=== PATIENT | male | born 1935 | race Caucasian/White ===

== ENCOUNTER 2017-06-29 14:42 | Emergency (ER) | payer OTHER ==
[~2017-06-29] VITALS: Ht 162.6 cm; Wt 105.8 kg
[~2017-06-29 14:42] MED LIST: APRESOLINE25 MG PO; ATORVASTATIN CA40 MG PO; CLOBETASOL PROP50 ML TP; CLOTRIM ANTIFUN15 GM TP; FUROSEMIDE20 MG PO; JANUVIA25 M1 PO; LEVOTHYROXINE112 MCG PO; LOSARTAN POTASS25 MG PO; LOW DOSE ASPIRI81 M1 PO; LYRICA100 MG PO; LYRICA200 MG PO; METFORMIN HCL1000 MG PO; METFORMIN HCL500 MG PO
[2017-06-29] MEDS ORDERED: PERCOCET 5/31 TABLET PO (16:25)
[2017-06-29] MEDS ORDERED: VALIUM5 MG PO (16:25)
[2017-06-29] MEDS ORDERED: PREDNISONE10 MG PO (16:25)
[2017-06-29 16:37] VITALS: BP 112/66
== END 2017-06-29 16:51 | disposition home or self-care (01) ==
LOC: EME 14:42
DX: M54.32 Sciatica, left side (principal); E11.9 Type 2 diabetes mellitus without complications; Z79.84 Long term (current) use of oral hypoglycemic drugs; Z79.82 Long term (current) use of aspirin
CPT/HCPCS: 72100; 99281; 99284; J1100; J3010

== ENCOUNTER 2017-11-05 18:12 | Emergency (ER) | payer OTHER ==
[~2017-11-05] VITALS: Ht 165.1 cm; Wt 106.0 kg
[~2017-11-05 18:12] MED LIST changes: +PERCOCET 5/31 TABLET PO; +PREDNISONE10 MG PO; +VALIUM5 MG PO
[2017-11-05 18:36] VITALS: BP 177/68
== END 2017-11-05 19:45 | disposition home or self-care (01) ==
LOC: EME 18:12
DX: J02.9 Acute pharyngitis, unspecified (principal); R05 Cough; R09.82 Postnasal drip; I10 Essential (primary) hypertension; E11.9 Type 2 diabetes mellitus without complications; E78.00 Pure hypercholesterolemia, unspecified; Z79.84 Long term (current) use of oral hypoglycemic drugs; Z79.82 Long term (current) use of aspirin; Z95.4 Presence of other heart-valve replacement
CPT/HCPCS: 71020

== ENCOUNTER 2018-02-28 22:37 | Emergency (ER) | payer OTHER ==
[~2018-02-28] VITALS: Ht 165.1 cm; Wt 101.7 kg
[2018-02-28 23:20] LABS: HEMATOCRIT 36.4 % (38.0-50.0); HEMOGLOBIN 11.8 G/DL (12.5-16.6); MCH 26.9 PG (29.0-34.0); MCHC 32.4 G/DL (30.0-36.0); MCV 83.1 FL (86-99); NRBC (%) 0.2 /100 WBC (0-0); PLATELET COUNT 275 K/uL (156-360); RBC DIS.WIDTH-CV 16.1 % (11.8-14.6); RBC DIS.WIDTH-SD 48.2 % (39-53); RED BLOOD COUNT 4.38 M/uL (4.00-5.50); WHITE BLOOD COUNT 8.4 K/uL (4.1-10.2)
[2018-02-28 23:31] LABS: CHLORIDE 106 mEq/L (99-109); SODIUM 139 mEq/L (136-147)
[2018-02-28 23:32] LABS: GLUCOSE 113 mg/dL (70-99)
[2018-02-28 23:36] LABS: CREATININE 1.1 mg/dL (0.6-1.3); GFR ESTIMATE (CALCULATED) > 59 mL/min/ (58.99-99999)
[2018-02-28 23:37] LABS: UREA NITROGEN (BUN) 12 mg/dL (9-23)
[2018-03-01 02:57] LABS: TROP-I INTERPRETATION NEGATIVE; TROPONIN-I 0.03 ng/mL (0.0-0.30)
[2018-03-01 02:58] LABS: ALBUMIN 4.2 g/dL (3.2-4.8)
[2018-03-01 03:01] LABS: TOTAL PROTEIN 7.3 g/dL (6.4-8.3)
[2018-03-01 03:03] LABS: TOTAL BILIRUBIN 0.5 mg/dL (0.0-1.0)
[2018-03-01 03:04] LABS: ALKALINE PHOSPHATASE 73 IU/L (3-129)
[2018-03-01 03:06] LABS: AST (GOT) 24 IU/L (2-34)
[2018-03-01 03:07] LABS: ALT (GPT) 20 IU/L (3-49); DIRECT BILIRUBIN 0.3 mg/dL (0.0-0.3)
[2018-03-01 03:08] LABS: LIPASE 22 U/L (1.0-51.0)
[2018-03-01 05:33] VITALS: BP 170/62
== END 2018-03-01 05:38 | disposition home or self-care (01) ==
LOC: EME 22:37
PROVIDERS: Emergency Medicine
DX: R68.83 Chills (without fever) (principal); J40 Bronchitis, not specified as acute or chronic; E11.9 Type 2 diabetes mellitus without complications; Z79.84 Long term (current) use of oral hypoglycemic drugs; Z79.82 Long term (current) use of aspirin; Z85.850 Personal history of malignant neoplasm of thyroid
CPT/HCPCS: 74177; 80048; 80076; 81003; 83690; 83880; 84484; 85027; 94640; J2405; J7030